=== PATIENT | male | born 1980 | race African-American/Black ===

== ENCOUNTER 2019-07-03 15:59 | Emergency (ER) | payer MEDICAID, OTHER ==
[~2019-07-03] VITALS: Ht 170.2 cm; Wt 61.2 kg
[2019-07-03 19:05] VITALS: BP 104/60
== END 2019-07-03 19:21 | disposition home or self-care (01) ==
LOC: ER 15:59
DX: M62.830 Muscle spasm of back (principal); M54.2 Cervicalgia; M54.5 Low back pain; Z88.0 Allergy status to penicillin; V49.9XXA Car occupant (driver) (passenger) injured in unspecified traffic accident, initial encounter; Y93.89 Activity, other specified; Y92.488 Other paved roadways as the place of occurrence of the external cause; Y99.8 Other external cause status

== ENCOUNTER → 2019-08-11 | Emergency (ER) | payer OTHER, MEDICAID | END | disposition left against medical advice (07) | LOC: ER 11:47 | DX: R22.0 Localized swelling, mass and lump, head (principal); Z53.21 Procedure and treatment not carried out due to patient leaving prior to being seen by health care provider ==

== ENCOUNTER 2019-08-20 13:39 | Emergency (ER) | payer MEDICAID, OTHER ==
[~2019-08-20] VITALS: Ht 170.2 cm; Wt 65.8 kg
[2019-08-20 15:47] VITALS: BP 108/66
[2019-08-20] MEDS ORDERED: cefTRIAXone SOD 1,000 MG VL IM ONE (16:30)
[2019-08-20] MEDS ORDERED: KETOROLAC TROMETH 60MG/2ML VIAL IM ONE (16:30)
== END 2019-08-20 17:01 | disposition home or self-care (01) ==
LOC: ER 13:39
DX: K04.7 Periapical abscess without sinus (principal); Z88.0 Allergy status to penicillin
CPT/HCPCS: 96372; 99284; J0696; J1885

== ENCOUNTER 2019-08-27 15:56 | Emergency (ER) | payer MEDICAID ==
[~2019-08-27] VITALS: Ht 170.2 cm; Wt 61.2 kg
[2019-08-27 21:10] LABS: Hematocrit 43.3 % (41.0-53.0); Hemoglobin 14.7 g/dL (13.5-17.5); Mean Corpuscular Hemoglobin 33.4 pg (28.0-32.0); Mean Corpuscular Volume 98.2 fL (80.0-100.0); Platelet Count (auto) 210 10^3/uL (140-450); Red Blood Cells 4.41 10^6/uL (4.5-5.90); Red Cell Distribution Width 13.4 % (11.8-14.3); White Blood Cell 4.5 10^3/uL (4.4-10.8)
[2019-08-27 21:13] LABS: Basophils % (manual) 0 (0.0-2.0); Blast Cells 0; Metamyelocytes % 0; Myelocytes % 0; Promyelocytes % 0; Reactive Lymphocytes 0
[2019-08-27 21:28] LABS: Albumin 3.7 g/dL (3.4-5.0); Potassium 4.3 mmol/L (3.5-5.1)
[2019-08-27 21:31] LABS: BUN/Creatinine Ratio 18.1; Bilirubin, Total 0.2 mg/dL (0.2-1.0); CRP High Sensitivity 0.07 mg/dL (< 0.3); Total Protein 7.3 g/dL (6.4-8.2)
[2019-08-27] MEDS ORDERED: CLINDAMYCIN 900MG IV 50 ML IV ONE (21:45)
[2019-08-27] MEDS ORDERED: SODIUM CHLORIDE 0.9% 1,000 ML IV ONE (21:45)
[2019-08-27 23:13] LABS: Band Neutrophils % (manual) 1; Eosinophils % (manual) 1 (0-7); Lymphocytes % (manual) 55 (10.0-50.0); Monocytes % (manual) 5 (0-12)
[2019-08-28 00:19] VITALS: BP 124/84
== END 2019-08-28 00:27 | disposition home or self-care (01) ==
LOC: ER 15:56
DX: K12.2 Cellulitis and abscess of mouth (principal); K03.81 Cracked tooth; K05.20 Aggressive periodontitis, unspecified; F17.210 Nicotine dependence, cigarettes, uncomplicated; R51 Headache; Z88.0 Allergy status to penicillin
CPT/HCPCS: 36415; 70450; 70486; 80053; 83605; 85007; 85027; 85652; 86141; 96365; 96366; 99285; J3490; J7030

== ENCOUNTER 2020-09-08 23:14 | Emergency (ER) | payer MEDICAID ==
[~2020-09-08] VITALS: Ht 170.2 cm; Wt 65.8 kg
[2020-09-08 23:39] LABS: Urine Bacteria FEW /hpf (None Seen); Urine Blood 3+ /uL (Negative); Urine Mucus FEW (None Seen); Urine Specific Gravity 1.029 (1.001-1.035); Urine WBC 10 /hpf (0 - 3)
[2020-09-09 01:40] VITALS: BP 102/60
== END 2020-09-09 01:45 | disposition home or self-care (01) ==
LOC: ER 23:15
DX: N43.3 Hydrocele, unspecified (principal); F17.210 Nicotine dependence, cigarettes, uncomplicated; Z87.440 Personal history of urinary (tract) infections; Z88.0 Allergy status to penicillin
CPT/HCPCS: 76870; 81001

== ENCOUNTER 2021-02-17 23:48 | Emergency (ER) | payer MEDICAID ==
[~2021-02-17] VITALS: Ht 170.2 cm; Wt 63.5 kg
[2021-02-18 04:29] VITALS: BP 104/66
== END 2021-02-18 07:41 | disposition home or self-care (01) ==
LOC: ER 23:48
DX: S52.021A Displaced fracture of olecranon process without intraarticular extension of right ulna, initial encounter for closed fracture (principal); F17.210 Nicotine dependence, cigarettes, uncomplicated; Z88.0 Allergy status to penicillin; W22.01XA Walked into wall, initial encounter; Y93.89 Activity, other specified; Y92.89 Other specified places as the place of occurrence of the external cause; Y99.8 Other external cause status
CPT/HCPCS: 29105; 73080